=== PATIENT | male | born 1960 | race African-American/Black ===

== ENCOUNTER → 2016-08-27 | Outpatient (CLI) | payer OTHER ==
[~2016-08-27] MED LIST: CELLCEPT 250MG250 MG PO; COUMADIN 5MG5 MG/TAB PO; LASIX 40MG TABL40 MG PO; LOPRESSOR100 MG PO; LOVENOX 100100 MG/ML SQ; NATURE'S BLEN1000 IU PO; NEORAL100 MG/ML PO; NEORAL25 MG PO; OYSTER SHELL C500 MG PO; PRINIVIL20 MG PO; RAYOS5 MG PO; ZYLOPRIM 100MG100 MG PO
[2016-08-27 11:03] LABS: MEAN CELL VOLUME 93 fl (80.0-100.0); MEAN CORPUSCULAR HGB CONC 31 g/dl (33.0-37.0); MEAN PLATELET VOLUME 12.5 fl (7.4-10.4); PLATELET COUNT 221 K/mm3 (130-400); REDCELL DISTRIBUTION WIDTH-CV 15.5 % (11.5-14.5); WHITE BLOOD COUNT 3.7 K/mm3 (4.8-10.8)
[2016-08-27 11:06] LABS: ADD PATHOLOGY DIFF REVIEW NO; HEMATOCRIT 30.8 % (42.0-52.0); HEMOGLOBIN 9.4 g/dl (13.5-18.0); MEAN CORPUSCULAR HEMOGLOBIN 28 pg (27.0-31.0)
[2016-08-27 11:17] LABS: BAND 7 % (0-10); EOSINOPHIL 11 % (0-4); METAMYELOCYTE 1 % (0-0); NEUTROPHILS 52 % (42.0-75.2); PLATELET ESTIMATE NORMAL (NORMAL); TOTAL CELLS COUNTED 100
[2016-08-27 11:18] LABS: OVALOCYTES 1+; TEAR DROP CELLS 1+
[2016-08-27 11:50] LABS: ADJUSTED CALCIUM 9.4 mg/dL (8.4-10.2); ALBUMIN 3.3 gm/dL (3.5-5.0); BILIRUBIN,TOTAL 0.6 mg/dL (0.0-1.0); CALCIUM 8.8 mg/dL (8.4-10.2); CREATININE, serum 3.83 mg/dL (0.66-1.25); POTASSIUM 4.5 mmol/L (3.4-5.0); TOTAL PROTEIN 6.2 gm/dL (6.4-8.2)
== END ==
LOC: COL.LAB 09:20
DX: Z02.71 Encounter for disability determination (principal); I10 Essential (primary) hypertension; E78.4 Other hyperlipidemia; N18.9 Chronic kidney disease, unspecified; Z94.0 Kidney transplant status; M81.8 Other osteoporosis without current pathological fracture; I26.99 Other pulmonary embolism without acute cor pulmonale; I39 Endocarditis and heart valve disorders in diseases classified elsewhere; R25.2 Cramp and spasm